=== PATIENT | female | born 1965 | race Caucasian/White ===

== ENCOUNTER 2019-10-15 13:10 | Outpatient (CLI) | payer OTHER ==
[2019-10-15 15:14] LABS: BHCG - Serum Negative (NEGATIVE); Pregs Control Background? CLEAR/WHITE (CLR/WHITE); Pregs Control Bar Appear? YES (CONTROL BAR)
--- NOTE | 2019-10-15 17:06 | EKG ---
Test Reason : Blood Pressure : / mmHG Vent. Rate : 072 BPM Atrial Rate : 072 BPM P-R Int : 154 ms QRS Dur : 080 ms QT Int : 372 ms P-R-T Axes : 056 -60 037 degrees QTc Int : 407 ms Normal sinus rhythm Left axis deviation Abnormal ECG No previous ECGs available Confirmed by DR. Gabrielle ESPINOZA ([id number]) on 10/15/2019 5:06:18 PM Referred By: KIKI Confirmed By:DR. Gabrielle ESPINOZA
== END 2019-10-15 13:11 | disposition home or self-care (01) ==
LOC: LABBT 13:10
PROVIDERS: ATTEND Specialist
DX: Z01.818 Encounter for other preprocedural examination (principal); K60.2 Anal fissure, unspecified
CPT/HCPCS: 84703; 93005; 93010

== ENCOUNTER 2019-10-22 09:11 | Day surgery (SDC) | payer OTHER ==
[2019-10-15 13:37] VITALS: BMI 31.9
[2019-10-22] MEDS ORDERED: Acetaminophen 500 MG TAB ONE (09:34)
[2019-10-22] MEDS ORDERED: ceFOXitin 2 GM/50 ML Duplex BAG ONE (09:35)
[2019-10-22] MEDS ORDERED: Ketorolac Tromethamine 30 MG/ML VIAL ONE (09:35)
[2019-10-22] MEDS ORDERED: Bupivacaine 0.25% HCL 30 ML VIAL ONE (10:06)
[2019-10-22] MEDS ORDERED: Lidocaine 2% Jelly 5 ML TUBE ONE (10:06)
[2019-10-22] MEDS ORDERED: Lidocaine 1% w/Epinephrine 1:100K 20 ML VIAL ONE (10:06)
[2019-10-22] MEDS ORDERED: Fentanyl 100 MCG/2 ML VIAL ONE (10:07)
[2019-10-22] MEDS ORDERED: PROPOFOL 200 MG/20 ML VIAL ONE (10:51)
[2019-10-22] MEDS ORDERED: Dexamethasone 20 MG/5 ML VIAL ONE (10:51)
[2019-10-22] MEDS ORDERED: Lidocaine 1% PF 5 ML VIAL ONE (10:51)
[2019-10-22] MEDS ORDERED: Ondansetron PF 4 MG/2 ML Vial ONE (10:51)
--- NOTE | 2019-10-22 14:58 | OP ---
DATE OF PROCEDURE: 10/22/2019 PREOPERATIVE DIAGNOSIS: Severe anorectal pain with suspected anal fissure. POSTOPERATIVE DIAGNOSIS: Severe anorectal pain with suspected anal fissure with finding of incompletely healed posterior anal fissure. PROCEDURES PERFORMED: Left lateral internal sphincterotomy, fissurectomy. ANESTHESIA: General endotracheal. INDICATIONS: The patient is a 54-year-old female. She has an ongoing history of severe anorectal pain over the course of the past several months. This did not respond to treatment with nitroglycerin. She knows that she has pain following each bowel movement. She is taken to the operating room at this time for sphincterotomy with possible fissurectomy depending upon findings. DESCRIPTION OF OPERATION: Informed consent was obtained. The patient was taken to the operating room, where general endotracheal anesthesia was obtained with the patient in supine position. She was then placed in dorsal lithotomy position. Perianal area was prepped with Betadine and draped in sterile fashion. Local anesthetic was infiltrated using a mixture of 1% lidocaine with epinephrine and 0.25% Marcaine. This was infiltrated in a 4-quadrant intersphincteric fashion. Examination within the rectum revealed that she does have several sizable external hemorrhoids. She also has some internal hemorrhoids. In the posterior midline, there is a shallow erythematous defect consistent with an incompletely healed posterior anal fissure. There was no other visible or palpable rectal abnormality. Attention was turned to the left lateral aspect. Local anesthetic was infiltrated. A small incision was created and dissection was carried down to the internal sphincter. This was isolated with a hemostat and divided with electrocautery. Hemostasis was obtained with electrocautery. The defect was closed with a running locking suture of 3-0 Vicryl. Attention was turned to the posterior midline. Additional local anesthetic was infiltrated. The area of the fissure was dissected and debrided. The resultant defect was closed with a running locking suture of 3-0 Vicryl. Avitene was placed within the wound and dry gauze and mesh pants placed externally. There were no complications. Blood loss was negligible. The patient tolerated the procedure well, was taken to the recovery room in stable condition. Job ID: [id number]
== END 2019-10-22 12:37 | disposition home or self-care (01) ==
LOC: SDC 09:11
PROVIDERS: ATTEND Specialist
PROC: 0D8R0ZZ Division of Anal Sphincter, Open Approach (ICD-10-PCS; principal; 2019-10-22)
PROC: 0DBR0ZZ Excision of Anal Sphincter, Open Approach (ICD-10-PCS; principal; 2019-10-22)
DX: K60.2 Anal fissure, unspecified (principal); E03.9 Hypothyroidism, unspecified; Z79.899 Other long term (current) drug therapy
CPT/HCPCS: J0694; J1100; J1885; J2001; J2405; J2704; J3010; S0020